=== PATIENT | male | born 1965 | race Asian ===

== ENCOUNTER → 2017-12-10 | Outpatient (CLI) | payer OTHER ==
--- NOTE | 2017-12-10 12:09 | RADRPT ---
EXAM DATE: 12/10/2017 12:04 PM EDT AGE/SEX: 52 years / Male INDICATIONS: Productive cough for four months. CLINICAL DATA: This is the patient's initial encounter. Patient reports that signs and symptoms have been present for 1 day and indicates a pain score of 0/10. MEDICAL/SURGICAL HISTORY: None. None. COMPARISON: No prior exams available for comparison. FINDINGS: PA and lateral views of the chest demonstrate the lungs to be symmetrically aerated without evidence of mass, infiltrate or effusion. The cardiomediastinal contours are unremarkable. Osseous structures are intact. CONCLUSION: No active disease. Electronically signed by: Dell Clifton MD 12/10/2017 12:07 PM EDT
== END ==
LOC: HRAD 11:34
PROVIDERS: ATTEND Pediatrics
DX: R05 Cough (principal)
CPT/HCPCS: 71046